=== PATIENT | male | born 1965 | race Caucasian/White ===

== ENCOUNTER → 2020-10-26 08:50 | Outpatient (BNVA) | payer BC, SELFPAY | PROVIDERS: PCP Internal Medicine; Visit Provider Urology ==

== ENCOUNTER → 2021-09-28 15:29 | Outpatient (BNVA) | payer BC, SELFPAY | PROVIDERS: PCP Internal Medicine; Visit Provider Urology ==

== ENCOUNTER → 2021-12-30 09:24 | Outpatient (BNVA) | payer BC, SELFPAY | PROVIDERS: PCP Internal Medicine; Visit Provider Urology | DX: Z13.89 Encounter for screening for other disorder (principal) ==

== ENCOUNTER → 2022-08-10 14:50 | Outpatient (BNVA) | payer BC, SELFPAY | PROVIDERS: PCP Internal Medicine; Visit Provider Urology | DX: Z13.89 Encounter for screening for other disorder (principal) ==

== ENCOUNTER → 2022-12-27 15:42 | Outpatient (BNVA) | payer BC, SELFPAY | PROVIDERS: PCP Internal Medicine; Visit Provider Urology ==

== ENCOUNTER 2023-05-14 08:01 | Day surgery (SDC) | payer BC, SELFPAY ==
[2023-05-10 07:43] VITALS: BMI 38.8
--- NOTE | 2023-05-11 11:48 | HO.ANESPROP2 ---
Documented by User: Kat Joyner NP 05/11/23 11:51 HPI - Anesthesia Eval Consult details Narrative: 57yo M for Targeted Prostate Needle Biopsy Cardiac cleared (s/p PR and CABG x 4 08/2022). Last office eval 09/2022 Routine PCP office visit 01/2023. No cardiac symptoms. PMFSH Active Problems Active Problems: All Active Problems (Updated 05/10/23 @ 07:43 by Mee Rios, RN) Bladder outlet obstruction (Acute) Elevated PSA (Acute) Past Medical History Medical History (Updated 05/10/23 @ 07:43 by Mee Rios RN) Hyperlipidemia Seasonal allergies Obesity Sleep apnea Myocardial infarction HTN (hypertension) Elevated PSA Family History Family History Father Bladder cancer Surgical History Surgical History (Updated 05/10/23 @ 07:48 by Mee Rios RN) Hx of coronary artery bypass graft History of mandibular surgery Social History Social History Patient Tobacco Use Status: Never used Tobacco Use of substances other than those prescribed or required for medical reasons: No Are you DNR?: No Advance Directives: No Advance Directives Information Provided: Yes Meds Allergies Allergy/AdvReac Type Severity Reaction Status Date / Time Dust mites Allergy Unknown Unknown Uncoded 08/10/22 14:51 Home Medications Medication Instructions Recorded Confirmed Last Taken Type aspirin 81 mg tablet,delayed 81 mg PO DAILY 05/10/23 05/10/23 05/06/23 History release atorvastatin 80 mg tablet 80 mg PO BEDTIME 05/10/23 05/10/23 Unknown History cholecalciferol (vitamin D3) 25 25 mcg PO BEDTIME 05/10/23 05/10/23 Unknown History mcg (1,000 unit) capsule (Vitamin D3) clopidogrel 75 mg tablet 75 mg PO DAILY 05/10/23 05/10/23 05/06/23 History finasteride 5 mg tablet 5 mg PO BEDTIME 05/10/23 05/10/23 Unknown History metoprolol tartrate 100 mg tablet 100 mg PO BID 05/10/23 05/10/23 Unknown History multivitamin 1 tab PO BEDTIME 05/10/23 05/10/23 Unknown History niacin 750 mg tablet,extended 1,500 mg PO BEDTIME 05/10/23 05/10/23 Unknown History release 24 hr omega 1-oag-lay-fish oil 1,000 mg 1 cap PO BEDTIME 05/10/23 05/10/23 05/13/23 History (120 mg-180 mg) capsule (Fish Oil) Exam Exam Date and Time: May 11, 2023 1148 Height,Weight and Vital Signs: Height 5 ft 7 in Weight 112.491 kg Assessment and Plan Assessment Anesthesia Assessment: Chart Reviewed Documented by User: Kesha Cervantes MD 05/14/23 10:15 PMFSH Past Medical History Medical History (Updated 05/10/23 @ 07:43 by Mee Rios RN) Hyperlipidemia Seasonal allergies Obesity Sleep apnea Myocardial infarction HTN (hypertension) Elevated PSA Family History Family History Father Bladder cancer Family history of problems with anesthesia: No Surgical History Surgical History (Updated 05/10/23 @ 07:48 by Mee Rios RN) Hx of coronary artery bypass graft History of mandibular surgery History of Problems with Anesthesia: No Social History Social History Patient Tobacco Use Status: Never used Tobacco Use of substances other than those prescribed or required for medical reasons: No Are you DNR?: No Advance Directives: No Advance Directives Information Provided: Yes Meds Allergies Allergy/AdvReac Type Severity Reaction Status Date / Time Dust mites Allergy Unknown Unknown Uncoded 08/10/22 14:51 Home Medications Medication Instructions Recorded Confirmed Last Taken Type aspirin 81 mg tablet,delayed 81 mg PO DAILY 05/10/23 05/10/23 05/06/23 History release atorvastatin 80 mg tablet 80 mg PO BEDTIME 05/10/23 05/10/23 Unknown History cholecalciferol (vitamin D3) 25 25 mcg PO BEDTIME 05/10/23 05/10/23 Unknown History mcg (1,000 unit) capsule (Vitamin D3) clopidogrel 75 mg tablet 75 mg PO DAILY 05/10/23 05/10/23 05/06/23 History finasteride 5 mg tablet 5 mg PO BEDTIME 05/10/23 05/10/23 Unknown History metoprolol tartrate 100 mg tablet 100 mg PO BID 05/10/23 05/10/23 Unknown History multivitamin 1 tab PO BEDTIME 05/10/23 05/10/23 Unknown History niacin 750 mg tablet,extended 1,500 mg PO BEDTIME 05/10/23 05/10/23 Unknown History release 24 hr omega 1-kay-rgs-fish oil 1,000 mg 1 cap PO BEDTIME 05/10/23 05/10/23 05/13/23 History (120 mg-180 mg) capsule (Fish Oil) Exam Airway Mallampati Class: II TM Dist: >3cm Neck ROM: Full Heart: rrr Lungs: cta Assessment and Plan Assessment Anesthesia Assessment: Anesthesia Plan Discussed Final Anesthetic Review Family History of Problems with Anesthesia: No History of Problems with Anesthesia: No NPO: Yes ASA Class: III Final Preanesthetic Review: No Changes in Pt Med Stat, Meds/Allgs Chart Reviewed, Consent Obtained/Reviewed and Anes Risks/Benef Reviewed Patient Risk: Intermediate Procedure Risk: Low Anesthetic Plan Anesthetic Plan: GA Disposition: Standard PACU
[2023-05-14 08:31] VITALS: BP 133/75; PULSE 64; RESP 16; TEMP 36.5; O2SAT 97
[2023-05-14] MEDS: levoFLOXacin 500 MG TABLET PO (08:38)
[2023-05-14] MEDS: Lactated Ringers 1,000 ML 100 ML IVCONT (08:39)
--- NOTE | 2023-05-14 10:12 | MHC.SHP ---
Pre-Procedural Eval Section A Date of Service: 05/14/23 The patient is an INPATIENT: No Changes since office visit: No Cold of Flu in the past 2 weeks, No New Medical Problems, No Changes in Medication and No Patient answered all questions The History & Physical has been completed within 30 days and I have reviewed it.: No Section B Chief Complaint: Elevated prostate specific antigen [PSA] Relevant Family History (Specify if Yes): No Relevant Social History: None Present Medications: see Short Stay Collaborative assessment Medical History: Significant History History of Previous Operations: No relevant previous surgery Allergies: Allergies Allergy/AdvReac Type Severity Reaction Status Date / Time Dust mites Allergy Unknown Unknown Uncoded 08/10/22 14:51 Review of Systems Sugical H&P ROS: Negative: Constitution, Cardiovascular, Respiratory, Neurological, Psychiatric, Hem-Onc, Allergic/Immunologic, Gastrointestinal, Genitourinary, Musculoskeletal, Integumentary, Endocrine and Eyes/Ears/Nose/Throat Exam Surgical H&P Exam: Normal: HEENT, Normal: Heart, Normal: Lungs, Normal: Extremities, Normal: Abdomen, Normal: Skin and Normal: Neurological Plan Diagnosis/Plan: Unchanged (Fusion biopsy prostate) I have reviewed the history and physical and performed a pertinent physical examination on my patient. No changes have occurred unless specified. Time Spent With Patient Time: Total time managing care of this patient today ____ minutes.
--- NOTE | 2023-05-14 11:07 | W.PM.OPN ---
Operative Note Operative Note Date of Service: 05/14/23 Narrative: Preoperative diagnosis: Elevated PSA Postoperative diagnosis: Elevated PSA Procedure: 2. transrectal ultrasound-guided pudendal nerve block 3. MRI-US fusion image registration performed 3. transperineal ultrasound-guided prostate biopsy 15 core including targets Surgeon: Dr. Philip Drake Anesthetic: Sedation plus local Indications for procedure: Elevated PSA - 8mm MRI anterior lateral right side lesion Procedure: After informed consent was verified, the patient was brought into the procedure area. Patient identity confirmed. Perioperative antibiotics confirmed. Safety pause time out performed. Anesthesia performed per protocol Ultrasound probe was placed per rectum Focalis software and hardware platform used An ultrasound-guided pudendal nerve block was performed using 10 cc of 1% lidocaine. 8 cc was placed at the base and 2 cc of the apex. Perineal injection of local. Ultrasound placement was made with grid calibration for height and prostate diameter in both the transverse and longitudinal planes. Once grid calibration was confirmed ultrasound acquisition was performed in the transverse fashion. Three dimensional ultrasound model was created. The planned needle targeting based on prior acquisition of MRI imaging was overlaid on the ultrasound images and targets confirmed through ultrasound review. Based on pre -planning evaluation 15 targets had been identified. These included 1 target of PiRADs 4 - right anterolateral mid identified lesion/s.. He tolerated the procedure well. Was transferred to stable condition in the PACU. Printed instructions regarding antibiotic use and common side effects such as low-grade temperature, potential infection and bleeding were given Pathology: 15 cores prostate biopsy CPT 64979 Modifier 22 for complexity of planning and procedure execution
[2023-05-14 11:08] VITALS: BP 154/93; PULSE 63; RESP 14; TEMP 36.1; O2SAT 96
[2023-05-14 11:13] VITALS: BP 128/81; PULSE 60; RESP 16; O2SAT 96
[2023-05-14 11:18] VITALS: BP 130/87; PULSE 56; RESP 16; O2SAT 94
[2023-05-14 11:23] VITALS: BP 134/85; PULSE 60; RESP 16; TEMP 36.1; O2SAT 96
[2023-05-14 11:44] VITALS: BP 131/81; PULSE 56; RESP 18; TEMP 35.9; O2SAT 95
== END 2023-05-14 12:30 | disposition home or self-care (01) ==
PROVIDERS: PCP Internal Medicine; Visit Provider Urology
PROC: (CPT 55700; principal; 2023-05-14 09:50)
DX: C61 Malignant neoplasm of prostate (principal); R97.20 Elevated prostate specific antigen [PSA]; N32.0 Bladder-neck obstruction; I25.2 Old myocardial infarction; Z95.1 Presence of aortocoronary bypass graft; I10 Essential (primary) hypertension; E78.5 Hyperlipidemia, unspecified; J30.2 Other seasonal allergic rhinitis; G47.33 Obstructive sleep apnea (adult) (pediatric); Z79.01 Long term (current) use of anticoagulants; Z79.82 Long term (current) use of aspirin; Z79.899 Other long term (current) drug therapy
CPT/HCPCS: 55706; 88305; 88344; J3010

== ENCOUNTER → 2023-05-14 08:01 | Outpatient (BNV) | payer BC, SELFPAY | PROVIDERS: PCP Internal Medicine; Visit Provider Urology | DX: R97.20 Elevated prostate specific antigen [PSA] (principal) | CPT/HCPCS: 55700; 76942 ==

== ENCOUNTER 2023-05-29 11:58 | Outpatient (AMB) | payer BC, SELFPAY ==
--- NOTE | 2023-05-29 12:00 | A.OFFVIS_ITS ---
Intake Intake Visit Reasons: Biopsy results Intake Note: Patient is Present for Telephone Follow Up Biopsy Urology Med:Finasteride, Antibiotic Allergy: None Blood Thinner: Plavix, Aspirin Allergies Dust mites Allergy (Unknown, Uncoded 08/10/22 14:51) Unknown Medication List - Last Reconciled 05/29/23 by Philip Drake MD aspirin 81 mg PO DAILY atorvastatin 80 mg PO BEDTIME cholecalciferol (vitamin D3) (Vitamin D3) 25 mcg PO BEDTIME clopidogrel 75 mg PO DAILY finasteride 5 mg PO BEDTIME metoprolol tartrate 100 mg PO BID multivitamin 1 tab PO BEDTIME niacin ER 1,500 mg PO BEDTIME omega 6-prx-esr-fish oil 1,000 mg (120 mg-180 mg) (Fish Oil) 1 cap PO BEDTIME HPI HPI Comments History of Present Illness Details Matt is a very pleasant male. He is a patient of Dr Navarrete. He is seen seen in the office today for the following urologic conditions. - Prostate Cancer Telemedicine Evaluation 15 min Consultation DoxBangee Ariella Video attempted Followup from targeted MRI-Ultrasound fusion biopsy Prostate Cancer - Multi core, Low Grade, Grade Group 1 (05/21) PSA at diagnosis - 4.5 on finasteride TRUS size 40gm Targeted Biopsy 15 cores Histologic grade: 3+3=6 (Grade group 1) Davenport score: 3+3=6 (Parts B - 5%, E- 10%, G- 10%, I- 10%, J - 30%, K - 25% and O - 5%) Number cores positive: 7 Total number of cores: 15 Periprostatic fat inv.: Not identified Seminal vesicle inv.: Not identified Perineural inv.: Not identified Imaging - 07/20 MRI - 07/20 PI-RADS for 8 mm rig ht anterior peripheral straddling the mid gland to the apex Elevated PSA/Abnormal CRISTI: He presents for further evaluation of elevated PSA. Current management is finasteride. Laboratory investigations include 12/16 , a total PSA evaluation 4.5 04/18 3.9 F 20%. 10/17 3.9, 09/20 6.2, 12/18 2.9, 06/20 4.5 PFSH Medical History Hyperlipidemia Seasonal allergies Obesity Sleep apnea Myocardial infarction HTN (hypertension) Elevated PSA Surgical History Hx of coronary artery bypass graft History of mandibular surgery Family History Father Bladder cancer Social History Patient Tobacco Use Status: Never used Tobacco Review of Systems Const All systems reviewed & are unremarkable except as noted in HPI and below Reports no additional complaints Resp Reports no additional complaints GI Reports no additional complaints Reports as per HPI Musc Reports no additional complaints Physical Exam Telemedicine evaluation Appropriate responses Regular breathing rate and rhythm HEENT Head: Yes normal to inspection Ears: hearing grossly normal bilaterally Eyes General: appearance normal, both eyes and all related structures Neck Neck: Yes normal visual inspection Chest Chest palpation & inspection: normal inspection of the chest Resp Effort & Inspection: normal respiratory effort and able to speak in complete sentences Assessment & Plan Assessment & Plan (1) Prostate cancer: Code(s): C61 - Malignant neoplasm of prostate Plan Prostate Cancer Therapy Discussion today focused on treatment options for prostate cancer. The patient has already reviewed educational materials that had been provided to him in printed form. The NCCN criteria for imaging, molecular testing and germ line testing were discussed. The discussion was then focused on therapeutic options which include 1) Deferred therapy/active surveillance. Recommended in the setting of low volume, very low risk and low risk disease. Criteria include 3 cores all less, same side, no core greater than 50% disease. Evaluation may be augmented with imaging such as pelvic MRI and genetic evaluation of biopsy material. Somatic tissue genetic testing such as Prolaris, which focuses on tumor-specific pathogenic variants that may identify an indication for further germline testing and can guide therapeutic decisions in the setting of low risk disease. - The patient is not a candidate for active surveillance. 2) Targeted Cryotherapy Ablation. The technique of cryotherapy was described. PSA free progression rates were discussed. Suitable candidates in general have low volume grade group 1 or grade group 2 disease. Typically pelvic MRI with targeted mapping biopsies are required for treatment planning. - The patient is not a candidate for image guided targeted cryotherapy ablation. 3) Robotic Prostatectomy. Salient features of the patient's PSA, Davenport score and disease stage were applied to the [facility] nomogram. Relevant rates of extracapsular extension, seminal vesicle involvement lani involvement with discussed. Pathologic up staging and down staging on final specimen was discussed. Salient features of the procedure, hospitalization and recovery were discussed. - The patient is a candidate for robotic prostatectomy.. 4) Radiation therapy was described. IMRT, hyperfractionated therapy, permanent seed implant with all without concomitant androgen deprivation therapy and rectal protection were discussed. There is a small separation regarding cancer control between radiation and prostatectomy at approximately 15 years. There is an evolving preference for hyper fractionated therapy. This gives the same radiation total dose in a reduced number of individual treatment sessions. This approach is associated with higher risks of rectal bleeding. To ameliorate these risks injection of a spacer gel posterior to the prostate has been advocated. This is only indicated in patients without evidence of extracapsular extension posteriorly, and should be considered with caution where disease is primary grade 4. Brachytherapy was described in detail. Typically this is a same day procedure. Therapy is typically well tolerated and gives good control for low-risk prostate cancer and cancer that does not involve neurovascular invasion. Different risks were described for each therapeutic option. Ranges from the published literature were discussed. Consequent morbidity and treatment to address complications were discussed. These include - robotic prostatectomy - Typically patients are in hospital for one day and miss 4 weeks of work. The importance of preoperative walking and Kegel exercises was stressed. Complications, including but not limited to; acute complications regarding blood loss, transfusion, DVT, ileus, wound infection and potential mortality. Long-term complications such as impotence, UTI, urethral stricture, bladder neck contracture, incontinence. Penile shrinkage and chronic pain were discussed and reviewed. - radiation - IMRT typically this takes 25-40 daily treatments administered on a Sunday through Sunday sequence. Treatment is normally well tolerated. associated side effects include urge, frequency, dysuria, hematuria, loose bowels and fatigue, particularly toward the end of therapy. These can be ameliorated to some degree with medication. Long-term risks regarding impotence and a small risk of chronic urinary urge and incontinence were discussed - brachytherapy General anesthesia is used. Radioactive seeds are placed. There may be a required planning visit. Risks regarding anesthesia with DVT, PE, infection, urinary retention, urgency, and frequency were discussed. Long-term risks include bladder neck contraction, impotence, urge, potential for secondary cancer of the bladder base The patient has Grade Group 1, pT 1 C prostate cancer disease Based on the patient's age, comorbidities and personal preferences reasonable treatment options include robotic surgery versus brachytherapy - referral made to Dr. Llamas [facility] for robotic surgery assessment, Dr. Chambers - [facility] brachytherapy assessment The patient is not a candidate for germline testing in accordance with the NCCN guideline Orders: Referrals Radiation Oncology Referral C61 - Malignant neoplasm of prostate Urology Referral C61 - Malignant neoplasm of prostate Patient Instructions: Imaging studies, laboratory and physical exam results were discussed and reviewed in detail. No major barriers to patient understanding were identified. An opportunity to ask questions regarding the treatment plan was provided. All questions were answered. The patient expressed understanding and agreement with the above treatment plan. The patient is aware they should contact our office by phone for worsening of their current condition or the appearance of new urologic symptoms. Compliance is encouraged with any medications and followup testing that is ordered. It is a privilege to participate in the urologic care of your patient. If you have any questions or concerns regarding treatment for the above conditions, or other urologic issues, please do not hesitate to contact me. The office telephone contact is [phone]. This note is constructed using voice recognition software. While every effort has been made to ensure accuracy mirror installer errors may have been included. Yours sincerely, Dr Philip Drake MD, [facility] - Urology Providers of Expert, Compassionate Care for the Genitourinary System Telehealth Telehealth Location of provider rendering services: practice address Location of patient: address on file Patient Identification confirmed using: Name, : Yes Telehealth method: video Patient verbally consented to treatment: Yes Patient verbally consented to billing insurance company: Yes Patient informed of any privacy concerns related to visit: Yes Coding Level of Care Code Tele Est Pt Level 4 (48953) Diagnoses Prostate cancer C61
== END 2023-05-29 12:37 | disposition home or self-care (01) ==
LOC: HO.HUSH 11:58
PROVIDERS: PCP Internal Medicine; Visit Provider Urology
DX: C61 Malignant neoplasm of prostate (principal)
CPT/HCPCS: 99214

== ENCOUNTER → 2023-05-29 11:58 | Outpatient (BNVA) | payer BC, SELFPAY | PROVIDERS: PCP Internal Medicine; Visit Provider Urology ==

== ENCOUNTER 2023-08-24 15:39 | Outpatient (AMB) | payer BC, SELFPAY ==
--- NOTE | 2023-08-24 15:57 | MHC.OFFVIS ---
Intake Intake Visit Reasons: 6w follow up Intake Note: Patient is Present for Follow Up Urology medication: finasteride, Antibiotic Allergies:None Blood Thinners: Plavix, Aspirin Allergies Dust mites Allergy (Unknown, Uncoded 08/10/22 14:51) Unknown HPI HPI Comments History of Present Illness Details Matt is a very pleasant male. He is a patient of Dr Navarrete. He is seen seen in the office today for the following urologic conditions. - Prostate Cancer Had meeting with Dr. Chambers regarding seeds, Dr. Llamas regarding prostatectomy At this stage with willing to keep pursuing active surveillance Three-month follow-up PSA was start finasteride Will get genetic test performed at [facility] Prostate Cancer - Multi core, Low Grade, Grade Group 1 (05/21) PSA at diagnosis - 4.5 on finasteride TRUS size 40gm Targeted Biopsy 15 cores Histologic grade: 3+3=6 (Grade group 1) [place] score: 3+3=6 (Parts B - 5%, E- 10%, G- 10%, I- 10%, J - 30%, K - 25% and O - 5%) Number cores positive: 7 Total number of cores: 15 Periprostatic fat inv: Not identified Seminal vesicle inv.: Not identified Perineural inv.: Not identified Imaging - 07/20 MRI - 07/20 PI-RADS for 8 mm right anterior peripheral straddling the mid gland to the apex - 06/21 MRI PI-RADS 4 10 mm right anterior Elevated PSA/Abnormal CRISTI: He presents for further evaluation of elevated PSA. Current management is finasteride. Laboratory investigations include 12/16 , a total PSA evaluation 4.5 04/18 3.9 F 20%. 10/17 3.9, 09/20 6.2, 12/18 2.9, 06/20 4.5 PFSH Medical History Hyperlipidemia Seasonal allergies Obesity Sleep apnea Myocardial infarction HTN (hypertension) Elevated PSA Surgical History Hx of coronary artery bypass graft History of mandibular surgery Family History Father Bladder cancer Social History Patient Tobacco Use Status: Never used Tobacco Review of Systems Const Denies chills and Denies fever(s) Card Reports no additional complaints and Denies syncope Resp Denies cough GI Denies abdominal pain and Denies heartburn Reports as per HPI and Denies change in libido Neuro Denies syncope Psych Denies change in libido Endo Denies change in libido Physical Exam Const General: cooperative, healthy appearing, comfortable and no acute distress Orientation/consciousness: patient oriented x3 HEENT Face and sinus: Yes normal facial exam Mouth: moist mucous membranes Neck Neck: Yes normal visual inspection, Yes full ROM and Yes trachea midline Chest Chest palpation & inspection: normal inspection of the chest Resp Effort & Inspection: normal respiratory effort, able to speak in complete sentences and no respiratory distress GI Inspection: Yes normal to inspection Back/Spine/Pelvis Cervical Spine: normal cervical lordosis Thoracic/Lumbar Spine: thoracic and lumbar spine normal to inspection Skin General skin exam: no rashes or lesions noted Neuro General: patient oriented x3, gait normal, tone normal and moves all extremities Extrem General: Yes normal to inspection and Yes capillary refill normal Assessment & Plan Assessment & Plan (1) Prostate cancer: Code(s): C61 - Malignant neoplasm of prostate (2) Bladder outlet obstruction: Code(s): N32.0 - Bladder-neck obstruction Plan Continue finasteride Three-month follow-up PSA Check with [facility] regarding decipher genetic test Orders: Orders Prostate Specific Antigen 3 Months C61 - Malignant neoplasm of prostate Patient Instructions: Imaging studies, laboratory and physical exam results were discussed and reviewed in detail. No major barriers to patient understanding were identified. An opportunity to ask questions regarding the treatment plan was provided. All questions were answered. The patient expressed understanding and agreement with the above treatment plan. The patient is aware they should contact our office by phone for worsening of their current condition or the appearance of new urologic symptoms. Compliance is encouraged with any medications and followup testing that is ordered. It is a privilege to participate in the urologic care of your patient. If you have any questions or concerns regarding treatment for the above conditions, or other urologic issues, please do not hesitate to contact me. The office telephone contact is [phone]. This note is constructed using voice recognition software. While every effort has been made to ensure accuracy wireline field operator errors may have been included. Yours sincerely, Dr Philip Drake MD, [facility] - Urology Providers of Expert, Compassionate Care for the Genitourinary System Coding Level of Care Code Est Pt Level 3 (38111) Diagnoses Prostate cancer C61 Bladder outlet obstruction N32.0
== END 2023-08-24 16:15 | disposition home or self-care (01) ==
PROVIDERS: PCP Internal Medicine; Visit Provider Urology
DX: C61 Malignant neoplasm of prostate (principal); N32.0 Bladder-neck obstruction
CPT/HCPCS: 99213

== ENCOUNTER → 2023-08-24 15:39 | Outpatient (BNVA) | payer BC, SELFPAY | PROVIDERS: PCP Internal Medicine; Visit Provider Urology ==

== ENCOUNTER 2023-11-20 15:28 | Outpatient (AMB) | payer BC, SELFPAY ==
--- NOTE | 2023-11-20 15:29 | MHC.OFFVIS ---
Intake Visit Reasons: 3M PSA(set)Confirmed Intake Note: Patient is Present for Telephone Follow Up Urology Med: Finasteride Antibiotic Allergy: None Blood Thinner:Aspirin, Clopidrogel Allergies Dust mites Allergy (Unknown, Uncoded 11/20/23 15:32) Unknown HPI Comments Details: Matt is a very pleasant male. He is a patient of Dr Navarrete. He is seen seen in the office today for the following urologic conditions. - Prostate Cancer Grade Group 1 Telemedicine Evaluation 15 min Consultation Doximity Ariella Video PSA rising despite finasteride Recommend prostate treatment Previously Had meeting with Dr. Chambers regarding seeds, Dr. Llamas regarding prostatectomy Unable to get genetic testing which was performed at [facility] PSA 11/20 6.2 He is leaning towards brachytherapy. He will call Dr. Chambers office in order to schedule. Prostate Cancer - Multi core, Low Grade, Grade Group 1 (05/21) PSA at diagnosis - 4.5 on finasteride TRUS size 40gm Targeted Biopsy 15 cores Histologic grade: 3+3=6 (Grade group 1) Kylie score: 3+3=6 (Parts B - 5%, E- 10%, G- 10%, I- 10%, J - 30%, K - 25% and O - 5%) Number cores positive: 7 Total number of cores: 15 Periprostatic fat inv: Not identified Seminal vesicle inv.: Not identified Perineural inv.: Not identified Imaging - 07/20 MRI - 07/20 PI-RADS for 8 mm right anterior peripheral straddling the mid gland to the apex - 06/21 MRI PI-RADS 4 - 10 mm right anterior Elevated PSA/Abnormal CRISTI: He presents for further evaluation of elevated PSA. Current management is finasteride. Laboratory investigations include 12/16 , a total PSA evaluation 4.5 04/18 3.9 F 20%. 10/17 3.9, 09/20 6.2, 12/18 2.9, 06/20 4.5 PFSH Medical History Hyperlipidemia Seasonal allergies Obesity Sleep apnea Myocardial infarction HTN (hypertension) Elevated PSA Surgical History Hx of coronary artery bypass graft History of mandibular surgery Family History Father Bladder cancer Social History Patient Tobacco Use Status: Never used Tobacco Review of Systems Const All systems reviewed & are unremarkable except as noted in HPI and below Reports no additional complaints Resp Reports no additional complaints GI Reports no additional complaints Reports as per HPI Musc Reports no additional complaints Physical Exam Telemedicine evaluation Appropriate responses Regular breathing rate and rhythm HEENT Head: Yes normal to inspection Ears: hearing grossly normal bilaterally Eyes General: appearance normal, both eyes and all related structures Neck Neck: Yes normal visual inspection Chest Chest palpation & inspection: normal inspection of the chest Resp Effort & Inspection: normal respiratory effort and able to speak in complete sentences Telehealth Telehealth Location of provider rendering services: practice address Location of patient: address on file Patient Identification confirmed using: Name, : Yes Telehealth method: video Patient verbally consented to treatment: Yes Patient verbally consented to billing insurance company: Yes Patient informed of any privacy concerns related to visit: Yes Assessment & Plan Assessment & Plan (1) Prostate cancer: Code(s): C61 - Malignant neoplasm of prostate Category: Medical Plan Planning on prostate brachytherapy Patient Instructions: Imaging studies, laboratory and physical exam results were discussed and reviewed in detail. No major barriers to patient understanding were identified. An opportunity to ask questions regarding the treatment plan was provided. All questions were answered. The patient expressed understanding and agreement with the above treatment plan. The patient is aware they should contact our office by phone for worsening of their current condition or the appearance of new urologic symptoms. Compliance is encouraged with any medications and followup testing that is ordered. It is a privilege to participate in the urologic care of your patient. If you have any questions or concerns regarding treatment for the above conditions, or other urologic issues, please do not hesitate to contact me. The office telephone contact is [phone]. This note is constructed using voice recognition software. While every effort has been made to ensure accuracy still tender errors may have been included. Yours sincerely, Dr Philip Drake MD, [facility] - Urology Providers of Expert, Compassionate Care for the Genitourinary System Coding Level of Care Code Tele Est Pt Level 4 (54123) Diagnoses Prostate cancer C61
== END 2023-11-20 16:40 | disposition home or self-care (01) ==
LOC: HO.HUSH 15:28
PROVIDERS: PCP Internal Medicine; Visit Provider Urology
DX: C61 Malignant neoplasm of prostate (principal)
CPT/HCPCS: 99214

== ENCOUNTER → 2023-11-20 15:28 | Outpatient (BNVA) | payer BC, SELFPAY | PROVIDERS: PCP Internal Medicine; Visit Provider Urology ==

== ENCOUNTER 2023-11-22 15:43 | Outpatient (AMB) | payer BC, SELFPAY ==
--- NOTE | 2023-11-22 15:43 | A.OFFVIS_ITS ---
Intake Visit Reasons: Prolaris/PSA Intake Note: Patient is present for Prolaris and psa results Locomotive Observer: Locomotive Observer Present (Kirsten ) Accompanied by: Spouse Allergies Dust mites Allergy (Unknown, Uncoded 11/20/23 15:32) Unknown HPI Comments Details: Matt is a very pleasant male. He is a patient of Dr Navarrete. He is seen seen in the office today for the following urologic conditions. - Prostate Cancer Grade Group 1 Telemedicine Evaluation 15 min Consultation Doximity Ariella Video PSA rising despite finasteride Recommend prostate treatment Previously had meeting with Dr. Chambers regarding seeds, Dr. Llamas regarding prostatectomy Unable to get genetic testing which was performed at [facility] PSA 11/20 6.2 He is leaning towards brachytherapy. Dr. Cobian is now the physician at [facility] performing these procedures. At this time he would like to wait 4 months with repeat PSA Prostate Cancer - Multi core, Low Grade, Grade Group 1 (05/21) PSA at diagnosis - 4.5 on finasteride TRUS size 40gm Targeted Biopsy 15 cores Histologic grade: 3+3=6 (Grade group 1) Kylie score: 3+3=6 (Parts B - 5%, E- 10%, G- 10%, I- 10%, J - 30%, K - 25% and O - 5%) Number cores positive: 7 Total number of cores: 15 Periprostatic fat inv: Not identified Seminal vesicle inv.: Not identified Perineural inv.: Not identified Imaging - 07/20 MRI - 07/20 PI-RADS for 8 mm right anterior peripheral straddling the mid gland to the apex - 06/21 MRI PI-RADS 4 - 10 mm right anterior Elevated PSA/Abnormal CRISTI: He presents for further evaluation of elevated PSA. Current management is finasteride. Laboratory investigations include 12/16 , a total PSA evaluation 4.5 04/18 3.9 F 20%. 10/17 3.9, 09/20 6.2, 12/18 2.9, 06/20 4.5 PFSH Medical History Hyperlipidemia Seasonal allergies Obesity Sleep apnea Myocardial infarction HTN (hypertension) Elevated PSA Surgical History Hx of coronary artery bypass graft History of mandibular surgery Family History Father Bladder cancer Social History Patient Tobacco Use Status: Never used Tobacco Review of Systems Const All systems reviewed & are unremarkable except as noted in HPI and below Reports no additional complaints Resp Reports no additional complaints GI Reports no additional complaints Reports as per HPI Musc Reports no additional complaints Physical Exam Telemedicine evaluation Appropriate responses Regular breathing rate and rhythm HEENT Head: Yes normal to inspection Ears: hearing grossly normal bilaterally Eyes General: appearance normal, both eyes and all related structures Neck Neck: Yes normal visual inspection Chest Chest palpation & inspection: normal inspection of the chest Resp Effort & Inspection: normal respiratory effort and able to speak in complete [facility] Telehealth Location of provider rendering services: practice address Location of patient: address on file Patient Identification confirmed using: Name, : Yes Telehealth method: video Patient verbally consented to treatment: Yes Patient verbally consented to billing insurance company: Yes Patient informed of any privacy concerns related to visit: Yes Assessment & Plan Assessment & Plan (1) Prostate cancer: Code(s): C61 - Malignant neoplasm of prostate Category: Medical (2) Bladder outlet obstruction: Code(s): N32.0 - Bladder-neck obstruction Category: Medical Plan Four month follow-up PSA Orders: Orders PSA,Total (Free>4and<10) 4 Months C61 - Malignant neoplasm of prostate Patient Instructions: Imaging studies, laboratory and physical exam results were discussed and reviewed in detail. No major barriers to patient understanding were identified. An opportunity to ask questions regarding the treatment plan was provided. All questions were answered. The patient expressed understanding and agreement with the above treatment plan. The patient is aware they should contact our office by phone for worsening of their current condition or the appearance of new urologic symptoms. Compliance is encouraged with any medications and followup testing that is ordered. It is a privilege to participate in the urologic care of your patient. If you have any questions or concerns regarding treatment for the above conditions, or other urologic issues, please do not hesitate to contact me. The office telephone contact is [phone]. This note is constructed using voice recognition software. While every effort has been made to ensure accuracy assistant production editor errors may have been included. Yours sincerely, Dr Philip Drake MD, [facility] - Urology Providers of Expert, Compassionate Care for the Genitourinary System Coding Level of Care Code Tele Est Pt Level 3 (60000) Diagnoses Prostate cancer C61 Bladder outlet obstruction N32.0
== END 2023-11-22 16:56 | disposition home or self-care (01) ==
LOC: HO.HUSH 15:43
PROVIDERS: PCP Internal Medicine; Visit Provider Urology
DX: C61 Malignant neoplasm of prostate (principal); N32.0 Bladder-neck obstruction
CPT/HCPCS: 99213

== ENCOUNTER → 2023-11-22 15:43 | Outpatient (BNVA) | payer BC, SELFPAY | PROVIDERS: PCP Internal Medicine; Visit Provider Urology ==

== ENCOUNTER 2024-02-19 15:35 | Outpatient (AMB) | payer BC, SELFPAY ==
--- NOTE | 2024-02-19 15:41 | A.OFFVIS_ITS ---
Intake Visit Reasons: 4M PSA(psa?) Intake Note: Patient is present for follow up Policy Analyst Required: No Allergies Dust mites Allergy (Unknown, Uncoded 11/20/23 15:32) Unknown HPI Comments Details: Matt is a very pleasant male. He is a patient of Dr Navarrete. He is seen seen in the office today for the following urologic conditions. - Prostate Cancer Grade Group 1 PSA not done at recent lab work Order placed Discussed with patient and partner options Based on MRI would be candidate for targeted cryotherapy Repeat PSA today and 4 months. He will call 2 days after PSA test to review results. Previously had meeting with Dr. Chambers regarding seeds, Dr. Llamas regarding prostatectomy Polaris result retained from [facility] shows active surveillance [facility] PSA 11/20 6.2 He is leaning towards brachytherapy. Dr. Cobian is now the physician at [facility] performing these procedures. At this time he would like to wait 4 months with repeat PSA Prostate Cancer - Multi core, Low Grade, Grade Group 1 (05/21) PSA at diagnosis - 4.5 on finasteride TRUS size 40gm Targeted Biopsy 15 cores Histologic grade: 3+3=6 (Grade group 1) Kylie score: 3+3=6 (Parts B - 5%, E- 10%, G- 10%, I- 10%, J - 30%, K - 25% and O - 5%) Number cores positive: 7 Total number of cores: 15 Periprostatic fat inv: Not identified Seminal vesicle inv.: Not identified Perineural inv.: Not identified Imaging - 07/20 MRI - 07/20 PI-RADS for 8 mm right anterior peripheral straddling the mid gland to the apex - 06/21 MRI PI-RADS 4 - 10 mm right anterior localized Elevated PSA/Abnormal CRISTI: He presents for further evaluation of elevated PSA. Current management is finasteride. Laboratory investigations include 12/16 , a total PSA evaluation 4.5 04/18 3.9 F 20%. 10/17 3.9, 09/20 6.2, 12/18 2.9, 06[facility] Medical History Hyperlipidemia Seasonal allergies Obesity Sleep apnea Myocardial infarction HTN (hypertension) Elevated PSA Surgical History Hx of coronary artery bypass graft History of mandibular surgery Family History Father Bladder cancer Social History Patient Tobacco Use Status: Never used Tobacco Review of Systems Const Denies chills and Denies fever(s) Card Reports no additional complaints and Denies syncope Resp Denies cough GI Denies abdominal pain and Denies heartburn Reports as per HPI and Denies change in libido Neuro Denies syncope Psych Denies change in libido Endo Denies change in libido Physical Exam Const General: cooperative, healthy appearing, comfortable and no acute distress Orientation/consciousness: patient oriented x3 HEENT Face and sinus: Yes normal facial exam Mouth: moist mucous membranes Neck Neck: Yes normal visual inspection, Yes full ROM and Yes trachea midline Chest Chest palpation & inspection: normal inspection of the chest Resp Effort & Inspection: normal respiratory effort, able to speak in complete sentences and no respiratory distress GI Inspection: Yes normal to inspection Back/Spine/Pelvis Cervical Spine: normal cervical lordosis Thoracic/Lumbar Spine: thoracic and lumbar spine normal to inspection Skin General skin exam: no rashes or lesions noted Neuro General: patient oriented x3, gait normal, tone normal and moves all extremities Extrem General: Yes normal to inspection and Yes capillary refill normal Telehealth Telehealth Location of provider rendering services: practice address Location of patient: address on file Patient Identification confirmed using: Name, : Yes Telehealth method: voice only Patient verbally consented to treatment: Yes Patient verbally consented to billing insurance company: Yes Patient informed of any privacy concerns related to visit: Yes Assessment & Plan Assessment & Plan (1) Prostate cancer: Code(s): C61 - Malignant neoplasm of prostate Category: Medical Plan Four month follow-up Orders: Orders Prostate Specific Antigen 4 Months C61 - Malignant neoplasm of prostate Prostate Specific Antigen 02/19/24 C61 - Malignant neoplasm of prostate Patient Instructions: Imaging studies, laboratory and physical exam results were discussed and reviewed in detail. No major barriers to patient understanding were identified. An opportunity to ask questions regarding the treatment plan was provided. All questions were answered. The patient expressed understanding and agreement with the above treatment plan. The patient is aware they should contact our office by phone for worsening of their current condition or the appearance of new urologic symptoms. Compliance is encouraged with any medications and followup testing that is ordered. It is a privilege to participate in the urologic care of your patient. If you have any questions or concerns regarding treatment for the above conditions, or other urologic issues, please do not hesitate to contact me. The office telephone contact is [phone]. This note is constructed using voice recognition software. While every effort has been made to ensure accuracy or assistant errors may have been included. Yours sincerely, Dr Philip Drake MD, [facility] - Urology Providers of Expert, Compassionate Care for the Genitourinary System Coding Level of Care Code Est Pt Level 3 (62815) Diagnoses Prostate cancer C61
== END 2024-02-19 16:58 | disposition home or self-care (01) ==
PROVIDERS: PCP Internal Medicine; Visit Provider Urology
DX: C61 Malignant neoplasm of prostate (principal)
CPT/HCPCS: 99213

== ENCOUNTER → 2024-02-19 15:35 | Outpatient (BNVA) | payer BC, SELFPAY | PROVIDERS: PCP Internal Medicine; Visit Provider Urology ==

== ENCOUNTER 2024-03-26 15:27 | Outpatient (AMB) | payer BC, SELFPAY ==
--- NOTE | 2024-03-26 15:28 | A.OFFVIS_ITS ---
Intake Visit Reasons: follow up/PSA Intake Note: Patient is Present for Telephone Follow Up Urology Med: Finasteride, Antibiotic Allergy: None Blood Thinner: Aspirin Javascript Web Developer Required: No Allergies Dust mites Allergy (Unknown, Uncoded 03/26/24 15:30) Unknown Medication List - Last Reconciled 03/26/24 by Philip Drake MD aspirin 81 mg PO DAILY atorvastatin 80 mg PO BEDTIME cholecalciferol (vitamin D3) (Vitamin D3) 25 mcg PO BEDTIME clopidogrel 75 mg PO DAILY finasteride 5 mg PO BEDTIME 90 days metoprolol tartrate 100 mg PO BID multivitamin 1 tab PO BEDTIME niacin ER 1,500 mg PO BEDTIME omega 2-slt-zds-fish oil 1,000 mg (120 mg-180 mg) (Fish Oil) 1 cap PO BEDTIME HPI Comments Details: Matt is a very pleasant male. He is a patient of Dr Navarrete. He is seen seen in the office today for the following urologic conditions. - Prostate Cancer Grade Group 1 Telemedicine Evaluation 15 min Consultation SeeToo Ariella Video Discussed current PSA Would continue with follow-up given genetic and imaging findings 4 month follow-up PSA Previously had meeting with Dr. Chambers regarding seeds, Dr. Llamas regarding prostatectomy Polaris result retained from [facility] shows active surveillance category PSA 11/20 6.2. 02/19 6.8 He is leaning towards brachytherapy. Dr. Cobian is now the physician at [facility] performing these procedures. At this time he would like to wait 4 months with repeat PSA Prostate Cancer - Multi core, Low Grade, Grade Group 1 (05/21) PSA at diagnosis - 4.5 on finasteride TRUS size 40gm Targeted Biopsy 15 cores Histologic grade: 3+3=6 (Grade group 1) Kylie score: 3+3=6 (Parts B - 5%, E- 10%, G- 10%, I- 10%, J - 30%, K - 25% and O - 5%) Number cores positive: 7 Total number of cores: 15 Periprostatic fat inv: Not identified Seminal vesicle inv.: Not identified Perineural inv.: Not identified Imaging - 07/20 MRI - 07/20 PI-RADS for 8 mm right anterior peripheral straddling the mid gland to the apex - 06/21 MRI PI-RADS 4 - 10 mm right anterior localized Polaris 12/23 - ultra low risk group, 1.4% 10 year progression risks, active surveillance category Elevated PSA/Abnormal CRISTI: He presents for further evaluation of elevated PSA. Current management is finasteride. Laboratory investigations include 12/16 , a total PSA evaluation 4.5 04/18 3.9 F 20%. 10/17 3.9, 09/20 6.2, 12/18 2.9, 06/20 4.5 PFSH Medical History Hyperlipidemia Seasonal allergies Obesity Sleep apnea Myocardial infarction HTN (hypertension) Elevated PSA Surgical History Hx of coronary artery bypass graft History of mandibular surgery Family History Father Bladder cancer Social History Patient Tobacco Use Status: Never used Tobacco Review of Systems Const All systems reviewed & are unremarkable except as noted in HPI and below Reports no additional complaints Resp Reports no additional complaints GI Reports no additional complaints Reports as per HPI Musc Reports no additional complaints Physical Exam Telemedicine evaluation Appropriate responses Regular breathing rate and rhythm HEENT Head: Yes normal to inspection Ears: hearing grossly normal bilaterally Eyes General: appearance normal, both eyes and all related structures Neck Neck: Yes normal visual inspection Chest Chest palpation & inspection: normal inspection of the chest Resp Effort & Inspection: normal respiratory effort and able to speak in complete sentences Telehealth Telehealth Telehealth Platform: [facility] Location of provider rendering services: practice address Location of patient: address on file Patient Identification confirmed using: Name, : Yes Telehealth method: video Patient verbally consented to treatment: Yes Patient verbally consented to billing insurance company: Yes Patient informed of any privacy concerns related to visit: Yes Minutes spent on Phone/Video with Pt.: 15 Assessment & Plan Assessment & Plan (1) Prostate cancer: Code(s): C61 - Malignant neoplasm of prostate Category: Medical Plan Four month follow-up PSA Patient Instructions: Imaging studies, laboratory and physical exam results were discussed and reviewed in detail. No major barriers to patient understanding were identified. An opportunity to ask questions regarding the treatment plan was provided. All questions were answered. The patient expressed understanding and agreement with the above treatment plan. The patient is aware they should contact our office by phone for worsening of their current condition or the appearance of new urologic symptoms. Compliance is encouraged with any medications and followup testing that is ordered. It is a privilege to participate in the urologic care of your patient. If you have any questions or concerns regarding treatment for the above conditions, or other urologic issues, please do not hesitate to contact me. The office telephone contact is [phone]. This note is constructed using voice recognition software. While every effort has been made to ensure accuracy surgical training specialist errors may have been included. Yours sincerely, Dr Philip Drake MD, [facility] - Urology Providers of Expert, Compassionate Care for the Genitourinary System Coding Level of Care Code Tele Est Pt Level 3 (53662) Diagnoses Prostate cancer C61
== END 2024-03-26 16:52 | disposition home or self-care (01) ==
LOC: HO.HUSH 15:27
PROVIDERS: PCP Internal Medicine; Visit Provider Urology
DX: C61 Malignant neoplasm of prostate (principal)
CPT/HCPCS: 99213

== ENCOUNTER → 2024-03-26 15:27 | Outpatient (BNVA) | payer BC, SELFPAY | PROVIDERS: PCP Internal Medicine; Visit Provider Urology ==

== ENCOUNTER 2024-08-29 15:05 | Outpatient (AMB) | payer BC, SELFPAY ==
--- OUTSIDE RECORDS SUMMARY | 2024-08-29 15:08 | XMS_ITS | Referral Summary ---
Author Organization [facility] Address [address] [place] [address] Care Team Providers Care Auto Clocks Repairer Name Role Phone Jules Navarrete Primary Care Provider [phone] Allergies No known active allergies Medications [id number] -fish oil-D3 350 mg- 1,000 unit capsule Take 1,000 mg by mouth. 09/03/2022 Active metoprolol tartrate (LOPRESSOR) 100 mg tablet SMARTSI Tablet(s) By Mouth Twice Daily Active finasteride (PROSCAR) 5 mg tablet Take 5 mg by mouth. 09/03/2022 Active niacin (NIASPAN) 750 mg CR tablet SMARTSI Tablet(s) By Mouth Every Night 05/25/2023 Active fenofibrate (LOFIBRA) tablet 160 mg SMARTSI Tablet(s) By Mouth Daily Active clopidogreL (PLAVIX) 75 mg tablet SMARTSI Tablet(s) By Mouth Daily Active cholecalciferol (VITAMIN D3) 1,000 unit tablet Take 25 mcg by mouth. 09/03/2022 Active aspirin 81 mg EC tablet SMARTSI Tablet(s) By Mouth Daily Active Active Problems Problem Noted Date Diagnosed Date Coronary artery disease 06/13/2023 Hypercholesterolemia 06/13/2023 Social History Tobacco Use Types Packs/Day Years Used Date Smoking Tobacco: Never Smokeless Tobacco: Never Tobacco Cessation:Counseling Given: Not Answered Alcohol Use Standard Drinks/Week Comments Yes 0 (1 standard drink = 0.6 oz pur e alcohol) Rarely uses Sex and Gender Information Value Date Recorded Sex Assigned at Male 05/31/2023 3:14 PM EDT Legal Sex Male 3:01 PM EDT Gender Identity Male 06/12/2023 10:33 PM EST Sexual Orientation Straight 06/12/2023 10 :33 PM EST Last Filed Vital Signs Vital Sign Reading Time Taken Comments Blood Pressure 99/64 06/13/2023 11:21 AM EST Pulse 65 06/13/2023 11:21 AM EST Temperature 36.9 ??C (98.4 ??F) 06/13/2023 1 1:21 AM EST Respiratory Rate 16 06/13/2023 11:2 1 AM EST Oxygen Saturation 98% 06/13/2023 11: 21 AM EST Inhaled Oxygen Concentration - - Weight 106.8 kg (235 lb 6.4 oz) 023 11:21 AM EST Height - - Body Mass Index - - Plan of Treatment Not on file Insurance BCBS OUT OF STATE PPO Care Teams Auto Clocks Repairer Relationship Specialty Start Date [place] [address] PCP - General Internal Medicine 06/13/23
--- OUTSIDE RECORDS SUMMARY | 2024-08-29 15:08 | XMS_ITS | Clinical Summary ---
Author Organization [facility] Address [address] [place] [address] Care Team Providers Care Elastic Assembler Name Role Phone Jules Navarrete Primary Care Provider [phone] Allergies No known active allergies Medications [id number] -fish oil-D3 350 mg- 1,000 unit capsule [...] Date Coronary artery disease 06/13/2023 Hypercholesterolemia 06/13/2023 Family History Medical History Relation Name Comments Prostate cancer Brother Bladder Cancer Father Relation Name Status Comments Brother Father Social History Tobacco Use Types Packs/Day Years [...] Mass Index - - Plan of Treatment Health Maintenance Due Date Last Done Comments Cologuard 1963 Colon Cancer Screening 1963 Colonoscopy 1963 FOBT / Fit Test 1963 HIV Screening 1963 Hepatitis C Screening 1965 Sigmoidoscopy 1963 DTaP,Tdap,and Td Vaccines (1 - Tdap) 10/29/1985 COVID-19 Vaccine ( season) 2024 05/05/2022, 06/09/2021, 11/06/2020, Additional history exists Influenza Vaccine (#1) 2024 Alcohol/Substance Use Screening 07/30/2024 Depression Screening and Follow-Up 07/30/2024 Social Drivers of Health Annual Screening 07/30/2024 RSV Vaccine (60+ years old and patients) (1 - 1-dose 75+ series) 10/29/2038 Zoster Vaccines Completed 07/29/2022, 07/01, 04/04/2022 Hepatitis B Vaccines Aged Out No long er eligible based on patient's age to complete this topic Pneumococcal Vaccine: Pediatric (0-5 Years) and At-Risk Patients (6-64 Years) Aged Out No longer eligible based on patient's age to complete this topic Insurance BCBS OUT OF STATE PPO Care Teams Elastic Assembler Relationship Specialty Start [place] [address] PCP - General Internal Medicine 06/13/23
--- OUTSIDE RECORDS SUMMARY | 2024-08-29 15:08 | XMS_ITS | Clinical Summary ---
Author Organization [facility] Address [address] [place] [address] Care Team Providers Care Lead Front Desk Agent Name Role Phone Jules Navarrete MD Primary Care Provider [phone] Allergies Active Allergy Reactions Criticality Noted Date Comments Cat Dander Other (See Comments) 07/04/2023 Dust Mite Extract Other (See Comments) 07/04/20 23 Medications Medication Sig Dispensed Refills Start Date End Date Status aspirin enteric coated (ECOTRIN LOW STRENGTH) 81 MG EC tablet SMARTSI Tablet(s) By Mouth Daily 10/02/2022 Active atorvastatin (LIPITOR) 80 MG tablet 07/01/2023 Active cholecalciferol (Vitamin D-[address]) 25 MCG (1000 UT) tablet Take 1 tablet (1,000 Units total) by mouth. 09/03/2022 Active clopidogrel (PLAVIX) 75 MG tablet SMARTSI Tablet(s) By Mouth Daily 10/02/2022 Active finasteride (PROSCAR) 5 MG tablet Take 1 tablet (5 mg total) by mouth. 09/03/2022 Active metoPROLOL TARTRATE (LOPRESSOR) 100 MG tablet SMARTSI Tablet(s) By Mouth Twice Daily 10/02/2022 Active niacin (NIASPAN) 750 MG CR tablet TAKE 2 TABLETS BY MOUTH ONCE A DAY AT BEDTIME 05/25/2023 Active omega-3 fatty acids 1000 MG Cap capsule Take 1 capsule (1,000 mg total) by mouth. 09/03/2022 Active Multiple Vitamin (MULTIVITAMIN ADULT PO) Take 1 tablet by mouth. 09/03/2022 Active Active Problems No known active problems Family History Medical History Relation Name Comments Cancer, Prostate Brother Willaim Cancer, Bladder Father Cancer, Prostate Paternal Uncle Shahab Eller Cancer, Kidney Neg Hx Relation Name Status Comments Brother Araseli Alive Father Paternal Uncle Shahab Eller Social History Tobacco Use Types Packs/Day Years Used Date Smoking Tobacco: Never Smokeless Tobacco: Never Tobacco Cessation:Counseling Given: Not Answered Sex and Gender Information Value Date Recorded Sex Assigned at Male 07/30/2023 11:29 PM EST Gender Identity Male 07/30/2023 11:29 PM EST Sexual Orientation Not on file Last Filed Vital Signs Vital Sign Reading Time Taken Comments Blood Pressure 120/71 07/04/2023 9:34 AM EST Pulse 64 07/04/2023 9:34 AM EST Temperature - - Respiratory Rate 16 07/04/2023 9:34 AM EST Oxygen Saturation - - Inhaled Oxygen Concentration - - Weight 106 kg (234 lb) 07/04/2023 9:34 AM EST Pe r pt Height 170.2 cm (5' 7 ) 07/04/2023 9:34 AM EST P er pt Body Mass Index 36.65 07/04/2023 9:34 AM EST Plan of Treatment Health Maintenance Due Date Last Done Comments Hepatitis C Virus Screening 1965 HIV Screening 10/29/1976 DTaP/Tdap/Td Vaccines (1 - Tdap) 10/29/1982 Colonoscopy 10/29/2008 Pneumococcal Vaccines 50+ (1 of 1 - PCV) 10/29/2013 Zoster (Shingles) Vaccine (1 of 2) 10/29/2013 RSV Vaccine 60 years and older and Patients (1 - Risk 60-74 years 1-dose series) 2023 Influenza Vaccine 02/28/2024 COVID-19 Vaccine ( - 2023-2 5 season) 2024 06/09/2021, 11/06/2020, 10/09/2020 Hepatitis B Vaccines Aged Out No long er eligible based on patient's age to complete this topic Pneumococcal Vaccine: Pediatric (0-5 Years) and At-Risk Patients (6 to 49 Years) Aged Out No longer eligible b ased on patient's age to complete this topic Care Teams Lead Front Desk Agent Relationship Specialty Start Date End Date Jules Navarrete MD [address] [place] [id number] PCP - General 08/29/22
--- NOTE | 2024-08-29 15:10 | A.OFFVIS_ITS ---
Intake Visit Reasons: 4M PSA(Elevated) Intake Note: Patient is present for 4M PSA ELEVATED Urology Medication:FINASTERIDE Antibiotic Allergy:NONE Blood Thinner:ASPIRIN Director Of Patient Financial Services Required: No Allergies Dust mites Allergy (Unknown, Uncoded 08/29/24 15:10) Unknown HPI Comments Details: Matt is a very pleasant male. He is a patient of Dr Navarrete. He is seen seen in the office today for the following urologic conditions. - Prostate Cancer Grade Group 1 Telemedicine Evaluation 15 min Consultation [employer] Ariella Video Discussed current PSA has continued to increase The remains inconsistency between PSA measurement and prior biopsy with genetic findings Recommend intervention He will decide between coiling back Dr. Llamas versus Dr. Cobian at [facility] for seed placement Previously had meeting with Dr. Chambers regarding seeds, Dr. Llamas regarding prostatectomy Polaris result retained from [facility] shows active surveillance category PSA 11/20 6.2. 02/19 6.8, 08/23 8.9 He is leaning towards brachytherapy. Dr. Cobian is now the physician at [facility] performing these procedures. Prostate Cancer - Multi core, Low Grade, Grade Group 1 (05/21) PSA at diagnosis - 4.5 on finasteride TRUS size 40gm Targeted Biopsy 15 cores Histologic grade: 3+3=6 (Grade group 1) [place] score: 3+3=6 (Parts B - 5%, E- 10%, G- 10%, I- 10%, J - 30%, K - 25% and O - 5%) Number cores positive: 7 Total number of cores: 15 Periprostatic fat inv: Not identified Seminal vesicle inv.: Not identified Perineural inv.: Not identified Imaging - 07/20 MRI - 07/20 PI-RADS for 8 mm right anterior peripheral straddling the mid gland to the apex - 06/21 MRI PI-RADS 4 - 10 mm right anterior localized Polaris 07/21 - ultra low risk group, 1.4% 10 year progression risks, active surveillance category Elevated PSA/Abnormal CRISTI: He presents for further evaluation of elevated PSA. Current management is finasteride. Laboratory investigations include 12/16 , a total PSA evaluation 4.5 04/18 3.9 F 20%. 10/17 3.9, 09/20 6.2, 12/18 2.9, 06/20 4.5 [facility] Medical History Hyperlipidemia Seasonal allergies Obesity Sleep apnea Myocardial infarction HTN (hypertension) Elevated PSA Surgical History Hx of coronary artery bypass graft History of mandibular surgery Family History Father Bladder cancer Social History Patient Tobacco Use Status: Never used Tobacco Review of Systems Const All systems reviewed & are unremarkable except as noted in HPI and below Reports no additional complaints Resp Reports no additional complaints GI Reports no additional complaints Reports as per HPI Musc Reports no additional complaints Physical Exam Telemedicine evaluation Appropriate responses Regular breathing rate and rhythm HEENT Head: Yes normal to inspection Ears: hearing grossly normal bilaterally Eyes General: appearance normal, both eyes and all related structures Neck Neck: Yes normal visual inspection Chest Chest palpation & inspection: normal inspection of the chest Resp Effort & Inspection: normal respiratory effort and able to speak in complete sentences Telehealth Telehealth Location of provider rendering services: practice address Location of patient: address on file Patient Identification confirmed using: Name, : Yes Telehealth method: voice only Patient verbally consented to treatment: Yes Patient verbally consented to billing insurance company: Yes Patient informed of any privacy concerns related to visit: Yes Assessment & Plan Assessment & Plan (1) Bladder outlet obstruction: Code(s): N32.0 - Bladder-neck obstruction Category: Medical (2) Prostate cancer: Code(s): C61 - Malignant neoplasm of prostate Category: Medical Plan Four month follow-up G Code G2211 Has been applied in accordance with CMS guidelines ( Medicare and Medicaid programs; [place] 2023 Payment Policies ) to convey the inherent complexity in ongoing patient care within the urology clinic. This deliberate utilization aligns with the visits complexity associated with medical care services serving as a focal point for necessary healthcare, addressing the patient's singular serious or complex condition. This judicious use ensure was appropriate reimbursement, especially in the context of managing such conditions within our specialized, longitudinal urologic practice. This patient has a complex and chronic urologic condition that requires longitudinal follow-up. CMS, Medicare and Medicaid programs; [place] 2023 Payment Policies Fed. Reg 88 (99): [id number] (Mar.052022) Orders: Orders Prostate Specific Antigen 4 Months C61 - Malignant neoplasm of prostate Patient Instructions: Imaging studies, laboratory and physical exam results were discussed and reviewed in detail. No major barriers to patient understanding were identified. An opportunity to ask questions regarding the treatment plan was provided. All questions were answered. The patient expressed understanding and agreement with the above treatment plan. The patient is aware they should contact our office by phone for worsening of their current condition or the appearance of new urologic symptoms. Compliance is encouraged with any medications and followup testing that is ordered. It is a privilege to participate in the urologic care of your patient. If you have any questions or concerns regarding treatment for the above conditions, or other urologic issues, please do not hesitate to contact me. The office telephone contact is [phone]. This note is constructed using voice recognition software. While every effort has been made to ensure accuracy catalogue maker errors may have been included. Yours sincerely, Dr Philip Drake MD, [facility] - Urology Providers of Expert, Compassionate Care for the Genitourinary System Coding Level of Care Code Tele Est Pt Level 3 (16014) Diagnoses Bladder outlet obstruction N32.0 Prostate cancer C61
== END 2024-08-29 15:58 | disposition home or self-care (01) ==
LOC: HO.HUSH 15:05
PROVIDERS: PCP Internal Medicine; Visit Provider Urology
DX: N32.0 Bladder-neck obstruction (principal); C61 Malignant neoplasm of prostate
CPT/HCPCS: 99213

== ENCOUNTER 2024-11-19 15:23 | Outpatient (AMB) | payer BC, SELFPAY ==
--- NOTE | 2024-11-19 15:28 | MHC.OFFVIS ---
Intake Visit Reasons: 4M PSA/Oncology Follow up(PSA?) Intake Note: Patient is present for 4M PSA/ONCOLOGY F/U Urology Medication:FINASTERIDE Antibiotic Allergy:NONE Blood Thinner:ASPIRIN Division Operations Specialist Required: No Allergies Dust mites Allergy (Unknown, Uncoded 11/19/24 15:29) Unknown HPI Comments Details: Matt is a very pleasant male. He is a patient of Dr Navarrete. He is seen seen in the office today for the following urologic conditions. - Prostate Cancer Grade Group 1 Telemedicine Evaluation 15 min Consultation [employer] Ariella Video Interested in seed placement if restaging shows adequate containment. Dr. Cobian office for repeat MRI and repeat biopsy. MRI has been completed 11/21 - prostate MRI. Most recent PSA 8.9. Dynamic pre and postcontrast imaging organized. Multi parametric. Prostate volume 35 cc. Peripheral zone lesion. 2.4 x 0.6 x 1.2 cm. Located right anterior portion of the peripheral zone at the mid gland contracts and abuts anterior fibromuscular stroma without definitive extra glandular extension. Based on findings would move with standard biopsy technique in order to be completed in the time of the fashion versus targeted Previously had meeting with Dr. Chambers regarding seeds, Dr. Llamas regarding prostatectomy Polaris result retained from [facility] shows active surveillance category PSA 11/20 6.2. 02/19 6.8, 08/23 8.9 He is leaning towards brachytherapy. Dr. Cobian is now the physician at [facility] performing these procedures. Prostate Cancer - Multi core, Low Grade, Grade Group 1 (05/21) PSA at diagnosis - 4.5 on finasteride TRUS size 40gm Targeted Biopsy 15 cores Histologic grade: 3+3=6 (Grade group 1) Kylie score: 3+3=6 (Parts B - 5%, E- 10%, G- 10%, I- 10%, J - 30%, K - 25% and O - 5%) Number cores positive: 7 Total number of cores: 15 Periprostatic fat inv: Not identified Seminal vesicle inv.: Not identified Perineural inv.: Not identified Imaging - 07/20 MRI - 07/20 PI-RADS for 8 mm right anterior peripheral straddling the mid gland to the apex - 06/21 MRI PI-RADS 4 - 10 mm right anterior localized Polaris 07/21 - ultra low risk group, 1.4% 10 year progression risks, active surveillance category Elevated PSA/Abnormal CRISTI: He presents for further evaluation of elevated PSA. Current management is finasteride. Laboratory investigations include 12/16 , a total PSA evaluation 4.5 04/18 3.9 F 20%. 10/17 3.9, 09/20 6.2, 12/18 2.9, 06/20 4.5 PFSH Medical History Hyperlipidemia Seasonal allergies Obesity Sleep apnea Myocardial infarction HTN (hypertension) Elevated PSA Surgical History Hx of coronary artery bypass graft History of mandibular surgery Family History Father Bladder cancer Social History Patient Tobacco Use Status: Never used Tobacco Review of Systems Const All systems reviewed & are unremarkable except as noted in HPI and below Reports no additional complaints Resp Reports no additional complaints GI Reports no additional complaints Reports as per HPI Musc Reports no additional complaints Physical Exam Telemedicine evaluation Appropriate responses Regular breathing rate and rhythm HEENT Head: Yes normal to inspection Ears: hearing grossly normal bilaterally Eyes General: appearance normal, both eyes and all related structures Neck Neck: Yes normal visual inspection Chest Chest palpation & inspection: normal inspection of the chest Resp Effort & Inspection: normal respiratory effort and able to speak in complete sentences Telehealth Telehealth Location of provider rendering services: practice address Location of patient: address on file Patient Identification confirmed using: Name, : Yes Telehealth method: voice only Patient verbally consented to treatment: Yes Patient verbally consented to billing insurance company: Yes Patient informed of any privacy concerns related to visit: Yes Assessment & Plan Assessment & Plan (1) Prostate cancer: Code(s): C61 - Malignant neoplasm of prostate Category: Medical Plan Risks, benefits and alternatives to therapy were discussed. These include but are not limited to infection, bleeding, damage to local organs and tissues, need for further interventions. Anesthetic risks regarding cardiac arrhythmia, blood clots, and potential mortality were discussed. The patient understands the typical recovery time and the outpatient nature of the procedure. After consideration of these risks the patient gives full informed consent and they wish to move ahead with the procedure. - repeat prostate biopsy Medications: New levofloxacin take 1 tablet day before procedure, 1 tablet day of procedure and 1 tablet day after procedure 500 mg PO DAILY 3 days 3 tabs 0RF C61 - Malignant neoplasm of prostate Patient Instructions: This note is constructed using voice recognition software. While every effort has been made to ensure accuracy bi developer errors may have been included. Imaging studies, laboratory and physical exam results were discussed and reviewed in detail. No major barriers to patient understanding were identified. An opportunity to ask questions regarding the treatment plan was provided. All questions were answered. The patient expressed understanding and agreement with the above treatment plan. The patient is aware they should contact our office by phone for worsening of their current condition or the appearance of new urologic symptoms. Compliance is encouraged with any medications and followup testing that is ordered. It is a privilege to participate in the urologic care of your patient. If you have any questions or concerns regarding treatment for the above conditions, or other urologic issues, please do not hesitate to contact me. The office telephone contact is [phone]. Sincerely, Dr Philip Drake MD, [facility] - Urology Compassionate Specialist Care for the Genitourinary System Coding Level of Care Code Tele Est Pt Level 3 (81464) Complex EM visit Add On G2211 Diagnoses Prostate cancer C61
--- OUTSIDE RECORDS SUMMARY | 2024-11-19 18:05 | XMS_ITS ---
Author Name [facility] Organization Unknown History of Medication Use Medication Directions Dispensed Refills Start Date End Date Stat Finasteride 1mg Tablet 03/04/2024 active MultiVitamin 03/04/2024 active niacin (NIASPAN) 750 MG CR tablet TAKE 2 TABLETS BY MOUTH ONCE A DAY AT BEDTIME 05/25/2023 active metoPROLOL TARTRATE (LOPRESSOR) 100 MG tablet SMARTSI Tablet(s) By Mouth Twice Daily 10/02/2022 active finasteride (PROSCAR) 5 MG tablet Take 1 tablet (5 mg total) by mouth. 09/03/2022 active Aspirin 01/28/2016 active Vitamin d 1000UNIT Tablet 01/28/2016 active Problems Problem Status Onset Date Problem Type Date of Resolution Source Plantar fasciitis active 2016-01-28 ProblemAct ENS_PODCRCT Equinus,Tailor bunion, acquired pes cavus, plantar flex met, LEFT other acquired deformities active 2016-01-28 ProblemAct ENS_PODCRCT Metatarsalgia active 2024-03-04 ProblemAct ENS_ PODCRCT Pain in left foot active 2024-03-04 EncounterDiagnosisAct ENS_PODCRCT Pain in right foot active 2024-03-04 EncounterDiagnosisAc t ENS_PODCRCT Plantar Flexed Metatarsal - Metatarsalgia, RIGHT foot active 2024-03-04 EncounterDiagnosisAct ENS_PO DCRCT Encounters Encounter Type Encounter Reason Primary Diagnosis Location Date Ambulatory Malignant neoplasm of prostate Malignant neoplasm of prostate [facility] 07/04/2023 Care Team Organization Name Specialty Phone Email Start Date End [facility] 06/13/2024 [facility] Jules Chan Primary Care 08/19/2023 5 [facility] JULES CHAN Primary Care 07/04/2023 5 [facility] 12/30/2022 [facility] Jules Chan Primary Care PodiatryCSelena lambert Primary Care
--- OUTSIDE RECORDS SUMMARY | 2024-11-19 18:05 | XMS_ITS | Clinical Summary ---
Author Organization [facility] Address [address] [place] [address] Care Team Providers Care Mop Man Name Role Phone Jules Navarrete Primary Care Provider [phone] Allergies No known active allergies Medications [id number] -fish oil-D3 350 mg- 1,000 unit capsule [...] Date Coronary artery disease 06/13/2023 Hypercholesterolemia 06/13/2023 Encounters Date Type Department Care Team Description 10/28/2024 4:55 AM EDT - 10/28/2024 11:59 PM EDT Hospital Encounter [facility] Radiation Oncology [address] - [place] [address] Brian Cobian MD Arrived Discharge Disposition: Home or Self Care () 10/02/2024 Orders Only [facility] - External Imaging [address] [place] [id number] Radiology, External 09/17/2024 3:00 PM EST - 09/17/2024 11:59 PM EST Hospital Encounter [facility] Radiation Oncology [address] [place] [id number] Brian Cobian MD Prostate cancer (Primary Dx) Discharge Disposition: Home or Self Care () 09/17/2024 Orders Only [facility] Radiation Oncology [address] [place] [id number] Brian Cobian MD Prostate cancer (Primary Dx) 09/03/2024 9:45 AM EST - 09/03/2024 11:59 PM EST Hospital Encounter [facility] Radiation Oncology [address] [place] [address] Discharge Disposition: Home or Self Care () from Last 3 Months Family History Medical History Relation Name Comments [...] Sign Reading Time Taken Comments Blood Pressure 124/75 09/17/2024 3:15 PM EST Pulse 72 09/17/2024 3:15 PM EST Temperature 36.9 ??C (98.4 ??F) 06/13/2023 1 1:21 AM EST Respiratory Rate 16 09/17/2024 3:15 PM EST Oxygen Saturation 97% 09/17/2024 3:15 PM EST Inhaled Oxygen Concentration - - Weight 121.3 kg (267 lb 6.4 oz) 09/17/2024 3:15 PM EST Height - - Body Mass Index - - Plan of Treatment Health Maintenance Due Date Last Done Comments Cologuard 1965 Colon Cancer Screening 1965 Colonoscopy 1965 FOBT / Fit Test 1965 HIV Screening 1965 Hepatitis C Screening 1965 Sigmoidoscopy 1965 Pneumococcal Vaccine: 50+ Years (1 of 2 - PCV) 10/29/1982 DTaP,Tdap,and Td Vaccines (1 - Tdap) 10/29/1985 Zoster Vaccines (2 of 2) 09/23/2022 022, 07/29/2022, 04/04/2022 COVID-19 Vaccine (5 - season) 2024 05/05/2022, 06/09/2021, 11/06/2020, Additional history exists Alcohol/Substance Use Screening 07/30/2024 Depression Screening and Follow-Up 07/30/2024 Social Drivers of Health Annual Screening 07/30/2024 Influenza Vaccine (Season Ended) 2025 RSV Vaccine (60+ years old and patients) (1 - 1-dose 75+ series) 10/29/2038 Hepatitis B Vaccines Aged Out No long er eligible based on patient's age to complete this topic Procedures * Due to [place] [employer] law, this organization might not be sharing negative HIV tests. Procedure Name Priority Date/Time Associated Diagnosis Comments AMB EXTERNAL MRI PROSTATE, O UTSIDE RESULT 10/02/2024 from Last 3 Months Results * Due to [place] [employer] law, this organization might not be sharing negative HIV tests. * MRI Prostate, Outside Result (10/02/2024) Anatomical Region Laterality Modality Other 10/02/2024 us Onbase Scan Abby AMB EXTERNAL RESULT PROCEDURE S Final Result from Last 3 Months Insurance BCBS OUT OF STATE PPO Care Teams Mop Man Relationship Specialty Start Date [place] [address] PCP - General Internal Medicine 06/13/23
--- OUTSIDE RECORDS SUMMARY | 2024-11-19 18:05 | XMS_ITS | Referral Summary ---
Author Organization [facility] Address [address] [place] [address] Care Team Providers Care Brake Adjuster Name Role Phone Jules Navarrete Primary Care Provider [phone] Encounters Date Type Department Care Team Description 10/28/2024 4:55 AM EDT - 10/28/2024 11:59 PM EDT Hospital Encounter [facility] Radiation Oncology [address] [place] [id number] Brian Cobian MD Arrived Discharge Disposition: Home or Self Care () 10/02/2024 Orders Only [facility] - External Imaging [address] [place] [id number] Radiology, External 09/17/2024 Orders Only [facility] Radiation Oncology [address] [place] [id number] Brian Cobian MD Prostate cancer (Primary Dx) 09/17/2024 3:00 PM EST - 09/17/2024 11:59 PM EST Hospital Encounter [facility] Radiation Oncology [address] [place] [id number] Brian Cobian MD Prostate cancer (Primary Dx) Discharge Disposition: Home or Self Care () 09/03/2024 9:45 AM EST - 09/03/2024 11:59 PM EST Hospital Encounter [facility] Radiation Oncology [address] [place] [address] Discharge Disposition: Home or Self Care () from Last 3 Months Allergies No known active allergies Medications [id number] -fish oil-D3 350 mg- 1,000 unit capsule [...] - Plan of Treatment Not on file Procedures * Due to [place] state law, this organization might not be sharing negative HIV tests. Procedure Name Priority Date/Time Associated Diagnosis Comments AMB EXTERNAL MRI PROSTATE, O UTSIDE RESULT 10/02/2024 from Last 3 Months Results * Due to [place] state law, this organization might not be sharing negative HIV tests. * MRI Prostate, Outside Result (10/02/2024) Anatomical Region Laterality Modality Other 10/02/2024 us Onbase Scan Abby AMB EXTERNAL RESULT PROCEDURE S Final Result from Last 3 Months Insurance [facility] OUT OF STATE PPO Care Teams Brake Adjuster Relationship Specialty Start Date End Date Jules Navarrete [facility] [address] [address] PCP - General Internal Medicine 06/13/23
--- OUTSIDE RECORDS SUMMARY | 2024-11-19 18:05 | XMS_ITS | Clinical Summary ---
Author Organization [facility] Address [address] [place] [address] Care Team Providers Care Assistant Front Desk Manager Name Role Phone Jules Navarrete MD Primary Care Provider [phone] Allergies Active Allergy Reactions Criticality Noted Date Comments Cat Dander Other (See Comments) 07/04/2023 Dust Mite Extract Other (See Comments) 07/04/20 Medications aspirin enteric coated (ECOTRIN LOW STRENGTH) 81 [...] Active Active Problems No known active problems Encounters Date Type Department Care Team Description 09/04/2024 Telephone [facility] [place] [address] [place] [address] Edd Llamas MD Appointment from Last 3 Months Family History Medical History Relation Name Comments Cancer, Prostate Brother Willairobby Cancer, Bladder Father Cancer, Prostate Paternal Uncle Shahab Eller Cancer, Kidney Neg Hx Relation Name Status Comments Brother Willaim Alive Father Paternal Uncle Shahab Eller Social History Tobacco Use Types Packs/Day Years Used Date Smoking Tobacco: Never Smokeless Tobacco: Never Tobacco Cessation:Counseling Given: Not Answered Sex and Gender Information Value Date Recorded Sex Assigned at Male 07/30/2023 11:29 PM EST Legal Sex Male 10:00 AM EST Gender Identity Male 07/30/2023 11:29 PM [...] series) 2023 Influenza Vaccine 02/28/2024 COVID-19 Vaccine (2023-2 5 season) 2024 06/09/2021, 11/06/2020, 10/09/2020 Hepatitis B Vaccines Aged Out No long er eligible based on patient's age to complete this topic Insurance [facility] PREFERRED Care Teams Assistant Front Desk Manager Relationship Specialty Start Date End Date Jules Navarrete MD [address] [place] [id number] PCP - General 08/29/22
== END 2024-11-19 16:30 | disposition home or self-care (01) ==
LOC: HO.HUSH 15:23
PROVIDERS: PCP Internal Medicine; Visit Provider Urology
DX: C61 Malignant neoplasm of prostate (principal)
CPT/HCPCS: 99213

== ENCOUNTER → 2024-11-19 15:23 | Outpatient (BNVA) | payer BC, SELFPAY | PROVIDERS: PCP Internal Medicine; Visit Provider Urology ==

== ENCOUNTER 2024-12-11 07:30 | Outpatient (REF) | payer BC, SELFPAY ==
--- OUTSIDE RECORDS SUMMARY | 2024-12-11 07:32 | XMS_ITS | Clinical Summary ---
Author Organization [facility] Address [address] [place] [address] Care Team Providers Care Animal Ecologist Name Role Phone Jules Navarrete Primary Care Provider [phone] Allergies No known active allergies Medications [id number]-epa -fish oil-D3 350 mg- 1,000 unit capsule [...] - 10/28/2024 11:59 PM EDT Hospital Encounter [facility] Radiation Oncology [address] [place] [address] - [place] [address] Brian Cobian MD Discharge Disposition: Home or Self Care () 10/02/2024 Orders Only [facility] - External Imaging [address] [place] [address] Radiology, External 09/17/2024 3:00 PM EST - 09/17/2024 11:59 PM EST Hospital Encounter [facility] Radiation Oncology [address] [place] [address] Brian Cobian MD Prostate cancer (Primary Dx) Discharge Disposition: Home or Self Care () 09/17/2024 Orders Only [facility] Radiation Oncology [address] [place] [address] Brian Cobian MD Prostate cancer (Primary Dx) from Last 3 Months Family History Medical [...] this topic Procedures * Due to [place] [employer] law, this organization might not be sharing negative HIV tests. Procedure Name Priority Date/Time Associated Diagnosis Comments AMB EXTERNAL MRI PROSTATE, O UTSIDE RESULT 10/02/2024 from Last 3 Months Results * Due to [place] [employer] law, this organization might not be sharing negative HIV tests. * MRI Prostate, Outside Result (10/02/2024) Anatomical Region Laterality Modality Other 10/02/20[address] us [address] [facility] AMB EXTERNAL RESULT PROCEDURE S Final Result from Last 3 Months Insurance BCBS OUT OF STATE PPO Care Teams Animal Ecologist Relationship Specialty Start Date End Date Jules Navarrete [address] [address] PCP - General Internal Medicine 06/13/23
--- OUTSIDE RECORDS SUMMARY | 2024-12-11 07:32 | XMS_ITS | Continuity of Care Document ---
Author Organization [facility] Address [address] [place] [address]- Care Team Providers Care J2Ee Consultant Name Role Phone Rosalba LUONG, Jules Pantoja Primary Care Physician Encounter [facility] Date(s): 11/09/24 - 12/09/24 [facility] [address] [place] [phone]- Encounter Type: Triage Allergies, Adverse Reactions, Alerts Substance Criticality Severity Reaction Reaction Severity Status Cats Active house dust mite allergen extract Active Immunizations Given and Recorded Vaccine Date Status Refusal Reason zoster vaccine, inactivated 07/29/22 Recorded zoster vaccine, inactivated 04/04/22 Recorded [id number] 12y+ bivalent booster vax 05/05/22 Recorded SARS-CoV-2 (COVID-19) mRNA-1273 vaccine 06/09/21 R ecorded SARS-CoV-2 (COVID-19) mRNA-1273 vaccine 11/06/20 R ecorded SARS-CoV-2 (COVID-19) mRNA-1273 vaccine 10/09/20 R ecorded Medications Aspirin Low Dose 81 mg oral delayed release tablet 1 tablet, By Mouth, Daily, # 90 tablet, 3 Refills, Maintenance, 04/08/24 10:40:00 AM EDT, [facility], 170, cm, 10/11/23 16:05:00 EDT, Height, 111.2, kg, 09/06/22 18:41:00 EST, Dry Weight Start Date: 04/08/24 Status: Ordered Quantity: 90.0 Unit: tablet Repeat number: 1 atorvastatin 80 mg oral tablet 1 tablet, By Mouth, Daily at bedtime, # 90 tablet, 3 Refills, Maintenance, 09/18/24 7:29:00 AM EST, [id number], 170, cm, 10/11/23 16:05:00 EDT, Height Start Date: 09/18/24 Status: Ordered Quantity: 90.0 Unit: tablet Repeat number: 1 cholecalciferol 1000 intl units oral tablet 1 tablet = 25 mcg, By Mouth, Daily at bedtime, Maintenance, 09/03/22 10:32:00 AM EST, Partial fill upon patient request if the prescription is for a schedule II opioid drug. Start Date: 09/03/22 Status: Ordered Repeat number: 1 EPA Fish Oil 1000 mg oral capsule 1 capsule = 1,000 mg, By Mouth, Daily at bedtime, Maintenance, 09/03/22 10:32:00 AM EST, Partial fillupon patient request if the prescription is for a schedule II opioid drug. Start Date: 09/03/22 Status: Ordered Repeat number: 1 fenofibrate 160 mg oral tablet 1 tablet = 160 mg, By Mouth, Daily, # 30 tablet, 11 Refills, Maintenance, 10/01/24 8:19:00 AM EST, Tablet, [facility]/pharmacy #[id number], Partial fill upon patient request if the prescription is for a schedule IIopioid drug., 170, cm, 10/01/24 8:06:00 EST, Height Start Date: 10/01/24 Status: Ordered Quantity: 30.0 Unit: tablet Repeat number: 12 finasteride 5 mg oral tablet 1 tablet = 5 mg, By Mouth, Daily at bedtime, Maintenance, 09/03/22 10:32:00 AM EST, Partial fill uponpatient request if the prescription is for a schedule II opioid drug. Start Date: 09/03/22 Status: Ordered Repeat number: 1 Metoprolol Tartrate 100 mg oral tablet 1 tablet, By Mouth, 2 times a day, # 180 tablet, 3 Refills, Maintenance, 09/18/24 7:30:00 AM EST, [facility], 170, cm, 10/11/23 16:05:00 EDT, Height Start Date: 09/18/24 Status: Ordered Quantity: 180.0 Unit: tablet Repeat number: 1 Multivitamin 1 tablet, By Mouth, Daily at bedtime, Maintenance, 09/03/22 10:33:00 AM EST, Partial fill upon patient request if the prescription is for a schedule II opioid drug. Start Date: 09/03/22 Status: Ordered Repeat number: 1 niacin 750 mg oral tablet, extended release = 1,500 mg, By Mouth, Daily at bedtime, Maintenance, 09/03/22 10:32:00 AM EST, Partial fill upon patient request if the prescription is for a schedule II opioid drug. Start Date: 09/03/22 Status: Ordered Repeat number: 1 Vashe Topical Solution 475 mL, Topically, Every 12 hours, 0 Refills, Maintenance, Solution Start Date: 09/11/22 Status: Ordered Repeat number: 1 Problem List Condition Confirmation Course Effective Dates Status H ealth Status Informant Coronary atherosclerosis due to calcified coronary lesion Confirmed Active CAD (coronary artery disease) Confirmed Active Dyslipidemia Confirmed Active Elevated blood-pressure reading without diagnosis of hypertension Confirmed Active Elevated lipoprotein A level Confirmed Active Obesity Confirmed Active Severe obesity Confirmed Active Social History Social History Type Response Smoking Status Never (less than 100 in lifetime) entered on: 10/11/23 Sex Sex Representation Male (finding) Patient Care team information Care Team Personnel Name: Gemma Priest RN Position: [facility] Hospital Precision Printing Worker Member Role: Primary Care Nurse Name: Grace Steiner Position: [facility] Outreach Member Role: Lifetime Consulting Physician Name: Jules Navarrete MD Position: [facility] Physician - Primary Care Member Role: PCP Address: [address] [place] [address] Telecom: Name: Willie Melo RN Position: [facility] RN Member Role: Primary Care Nurse Care Team Related Persons Name: KILO JOHNSON Insurance Providers Guarantor name: CARLOS HERNANDES Health Plan Information #: 1 Payer: [facility] ANTHEM PPO Member Number: NA Policy Number: NA Group Number: NA
--- OUTSIDE RECORDS SUMMARY | 2024-12-11 07:32 | XMS_ITS | Clinical Summary ---
Author Organization [facility] Address [address] [place] [address] Care Team Providers Care Patient Transportation Driver Name Role Phone Jules Navarrete MD Primary Care Provider [phone] Allergies Active Allergy Reactions Criticality Noted Date Comments Cat Dander Other (See Comments) 07/04/2023 Dust Mite Extract Other (See Comments) 07/04/20 23 Medications aspirin enteric coated (ECOTRIN LOW STRENGTH) [...] - Risk 60-74 years 1-dose series) 2023 COVID-19 Vaccine (2023-2 5 season) 2024 06/09/2021, 11/06/2020, 10/09/2020 Influenza Vaccine 02/27/2025 Hepatitis B Vaccines Aged Out No long er eligible based on patient's age to complete this topic Insurance [facility] PREFERRED Care Teams Patient Transportation Driver Relationship Specialty Start Date End Date Jules Navarrete MD [address] [place] [address] PCP - General 08/29/22
--- OUTSIDE RECORDS SUMMARY | 2024-12-11 07:32 | XMS_ITS | Continuity of Care Document ---
Author Organization [facility] Address [address] [place] [phone]- Care Team Providers Care Tie Loader Name Role Phone Rosalba LUONG, Jules Pantoja Primary Care Physician [phone] Encounter [facility] Date(s): 11/09/24 - 12/09/24 [facility] [address] [place] [phone]- Encounter Type: Triage Allergies, Adverse Reactions, Alerts Substance Criticality Severity Reaction Reaction Severity Status Cats Active house dust mite allergen extract Active Immunizations Given and Recorded Vaccine Date Status Refusal Reason zoster vaccine, inactivated 07/29/22 Recorded zoster vaccine, inactivated 04/04/22 Recorded [id number] 12y+ bivalent booster vax 05/05/22 Recorded SARS-CoV-2 (COVID-19) mRNA-1273 vaccine 06/09/21 R ecorded SARS-CoV-2 (COVID-19) mRNA-1273 vaccine 11/06/20 R ecorded SARS-CoV-2 (COVID-19) mRNA-1273 vaccine 10/09/20 R ecorded Medications Aspirin Low Dose 81 mg oral delayed release tablet 1 tablet, By Mouth, Daily, # 90 tablet, 3 Refills, Maintenance, 04/08/24 10:40:00 AM EDT, [facility], 170, cm, 10/11/23 16:05:00 EDT, Height, 111.2, kg, 09/06/22 18:41:00 EST, Dry Weight Start Date: 04/08/24 Status: Ordered Quantity: 90.0 Unit: tablet Repeat number: 1 atorvastatin 80 mg oral tablet 1 tablet, By Mouth, Daily at bedtime, # 90 tablet, 3 Refills, Maintenance, 09/18/24 7:29:00 AM EST, [facility], 170, cm, 10/11/23 16:05:00 EDT, Height Start [...] Refills, Maintenance, 10/01/24 8:19:00 AM EST, Tablet, [facility]/pharmacy #[id number], Partial fill upon patient request if [...] Maintenance, 09/18/24 7:30:00 AM EST, [facility], 170, cm, 10/11/23 16:05:00 EDT, Height Start [...] Team Personnel Name: Gemma Priest RN Position: [facility] Hospital Director Distribution Member Role: Primary Care Nurse Name: Grace Steiner Position: [facility] Outreach Member Role: Lifetime Consulting Physician Name: Jules Navarrete MD Position: [facility] Physician - Primary Care Member Role: PCP Address: [address] [place] [address] Telecom: Name: Willie Melo RN Position: [facility] RN Member Role: Primary Care Nurse Care Team Related Persons Name: KILO JOHNSON Insurance Providers Guarantor name: CARLOS HERNANDES Health Plan Information #: 1 Payer: [facility] ANTHEM PPO Member Number: NA Policy Number: NA Group Number: NA
--- OUTSIDE RECORDS SUMMARY | 2024-12-11 07:32 | XMS_ITS | Referral Summary ---
Author Organization [facility] Address [address] [place] [address] Care Team Providers Care Electroplating Technician Name Role Phone Jules Navarrete Primary Care Provider [phone] Encounters Date Type Department Care Team Description 10/28/2024 4:55 AM EDT - 10/28/2024 11:59 PM EDT Hospital Encounter [facility] Radiation Oncology [address] [place] [address] Brian Cobian MD Discharge Disposition: Home or Self Care () 10/02/2024 Orders Only [facility] - External Imaging [address] [place] [address] Radiology, External 09/17/2024 Orders Only [facility] Radiation Oncology [address] [place] [address] Brian Cobian MD Prostate cancer (Primary Dx) 09/17/2024 3:00 PM EST - 09/17/2024 11:59 PM EST Hospital Encounter [facility] Radiation Oncology [address] [place] [address] Brian Cobian MD Prostate cancer (Primary Dx) Discharge Disposition: Home or Self Care () from Last 3 Months Allergies No known active allergies Medications [id number]-[id number]-epa -fish oil-D3 350 mg- 1,000 unit capsule [...] Not on file Procedures * Due to [place] law, this organization might not be sharing negative HIV tests. Procedure Name Priority Date/Time Associated Diagnosis Comments AMB EXTERNAL MRI PROSTATE, O UTSIDE RESULT 10/02/2024 from Last 3 Months Results * Due to [employer] law, this organization might not be sharing negative HIV tests. * MRI Prostate, Outside Result (10/02/2024) Anatomical Region Laterality Modality Other 10/02/2024 us Onbase Scan Abby AMB EXTERNAL RESULT PROCEDURE S Final Result from Last 3 Months Insurance BCBS OUT OF STATE PPO Care Teams Electroplating Technician Relationship Specialty Start Date [place] [address] PCP - General Internal Medicine 06/13/23
[2024-12-11] MEDS: Lidocaine HCl 1 % MPF 5 ML VIAL 10 ML SUBCUT (08:57)
[2024-12-11] MEDS: levoFLOXacin 500 MG TABLET PO (08:58)
--- NOTE | 2024-12-12 17:30 | W.PM.OPN ---
Operative Note Operative Note Date of Service: 12/11/24 Narrative: Preoperative diagnosis: Prostate Cancer Postoperative diagnosis: Prostate Cancer Procedure: 1. transrectal ultrasound measurement of prostate 2. transrectal ultrasound-guided pudendal nerve block 3. transrectal ultrasound-guided prostate biopsy 12 core Surgeon: Dr. Philip Drake Anesthetic: 10cc 1% lidocaine Indications for procedure: Prostate Cancer - PSA 9.3, 35 g prostate, 2.4 cm right anterior peripheral zone mid gland lesion, no evidence OLIVA Counselling: Technical aspects, risks and benefits of proposed procedure were discussed in full. All questions have been answered, written consent has been obtained and patient agrees to proceed. Procedure: The patient was brought into the procedure area and placed in a left lateral decubitus position. Patient identity confirmed. Perioperative antibiotics confirmed. Safety pause time out performed. CRISTI was performed to dilate rectal sphincter Iodine 10cc with 60 cc gel was placed per rectum to reduce infection risk using a catheter tip syringe. 8 Hz Leonard rectal end-fire ultrasound probe was placed transrectally without difficulty. The prostate was visualized. Seminal vesicles were normal. Prostate margins were clearly demarcated. Bladder was seen superiorly. No cystic structures were noted Calcifications noted through surgical margin calcifications were noted at the surgical margin The prostate was otherwise heterogenous in nature - no clear prostatic nodules noted within peripheral or transitional zone. The prostate was measured in 3 dimensions Prostatic Width: 4.5 cm Prostatic Height: 3.7 cm Urethral Length: 4.6 cm Total volume equals : 40 ml An ultrasound-guided pudendal nerve block was performed using a 22 gauge spinal needle in the sagittal plane. 4 cc of 1% lidocaine placed at the junction of each seminal vesicle and 2 cc placed at the apex of the prostate. A 12 core biopsy was performed with 6 cores each side using an 18 gauge prostate biopsy gun. Two cores each were taken at the prostate apex, mid and base on each side. Cores were spaced between lateral and medial aspects. Each core was examined as placed on specimen foam as part of senior quality assurance engineer to ensure a minimum 1 cm of length and minimal discontinuity. He tolerated the procedure well with minimal rectal bleeding. Blood pressure remained stable following procedure. He was able to ambulate to bathroom after 5 minutes. Printed instructions regarding antibiotic use and common adverse events from the procedure such as low-grade temperature, potential infection and bleeding were given. He understands to call the office or go to an emergency room should any of these events arise. Pathology: 12 core prostate biopsy. CPT code 02455: Transrectal ultrasound; this is a diagnostic test for evaluation of the prostate and surrounding structures, looking for abnormalities or suspicious areas worrisome for cancer CPT code 57081: Biopsy, prostate; needle or punch, single or multiple, any approach CPT code 13439: Ultrasonic guidance for needle placement (eg, biopsy, aspiration, injection, localization device), imaging supervision and interpretation
== END 2024-12-11 07:31 | disposition home or self-care (01) ==
LOC: HO.US 07:30
PROVIDERS: PCP Internal Medicine; Visit Provider Urology
DX: C61 Malignant neoplasm of prostate (principal)
CPT/HCPCS: 55700; 76942; 88305; 88344; J2003

== ENCOUNTER → 2024-12-11 07:30 | Outpatient (BNV) | payer BC, SELFPAY | PROVIDERS: PCP Internal Medicine; Visit Provider Urology | DX: C61 Malignant neoplasm of prostate (principal) | CPT/HCPCS: 55700; 76872; 76942 ==

== ENCOUNTER 2024-12-25 10:24 | Outpatient (AMB) | payer BC, SELFPAY ==
--- NOTE | 2024-12-25 10:24 | A.OFFVIS_ITS ---
Intake Visit Reasons: Prostate biopsy results Intake Note: Patient is present for PROSTATE BIOPSY RESULTS Urology Medication:FINASTERIDE Antibiotic Allergy:NONE Blood Thinner:ASPIRIN Recruitment Consultant Required: No Allergies Dust mites Allergy (Unknown, Uncoded 12/25/24 10:26) Unknown HPI Comments Details: Matt is a very pleasant male. He is a patient of Dr Navarrete. He is seen seen in the office today for the following urologic conditions. - Prostate Cancer Grade Group 1 Send copy of letter to Dr. Cobian Telemedicine Evaluation 15 min Consultation avolution Ariella Video Recomend still a good candiate for seeds - the Grade Group 4 compent is small and there are no other risk factors such as PNI Repeat biopsy - Ultralow volume Lakeview score: 4+4=8 (right mid lateral 5%); 3+4=7 (left apex lateral 20%) 11/21 - prostate MRI. Most recent PSA 8.9. Dynamic pre and postcontrast imaging organized. Multi parametric. Prostate volume 35 cc. Peripheral zone lesion. 2.4 x 0.6 x 1.2 cm. Located right anterior portion of the peripheral zone at the mid gland contracts and abuts anterior fibromuscular stroma without definitive extra glandular extension. Based on findings would move with standard biopsy technique in order to be completed in the time of the fashion versus targeted Previously had meeting with Dr. Chambers regarding seeds, Dr. Llamas regarding prostatectomy Polaris result retained from [facility] shows active surveillance category PSA 11/20 6.2. 02/19 6.8, 08/23 8.9 He is leaning towards brachytherapy. Dr. Cobian is now the physician at [facility] performing these procedures. Histologic grade: Lakeview score: 4+4=8 (right mid lateral); 3+4=7 (left apex lateral) % of pattern 4: 20% of the tumor % of pattern 5: 0% Grade group: 4 and 2 Tumor quantitation: Number cores positive: 2 Total number of cores: 12 % of tissue involved: Less than 5% of all tissue examined Periprostatic fat inv.: Not identified Prostate Cancer - Multi core, Low Grade, Grade Group 1 (05/21) PSA at diagnosis - 4.5 on finasteride TRUS size 40gm Targeted Biopsy 15 cores Histologic grade: 3+3=6 (Grade group 1) Kylie score: 3+3=6 (Parts B - 5%, E- 10%, G- 10%, I- 10%, J - 30%, K - 25% and O - 5%) Number cores positive: 7 Total number of cores: 15 Periprostatic fat inv: Not identified Seminal vesicle inv.: Not identified Perineural inv.: Not identified Imaging - 07/20 MRI - 07/20 PI-RADS for 8 mm right anterior peripheral straddling the mid gland to the apex - 06/21 MRI PI-RADS 4 - 10 mm right anterior localized Polaris 07/21 - ultra low risk group, 1.4% 10 year progression risks, active surveillance category Elevated PSA/Abnormal CRISTI: He presents for further evaluation of elevated PSA. Current management is finasteride. Laboratory investigations include 12/16 , a total PSA evaluation 4.5 04/18 3.9 F 20%. 10/17 3.9, 09/20 6.2, 12/18 2.9, 06/20 4.5 PFSH Medical History Hyperlipidemia Seasonal allergies Obesity Sleep apnea Myocardial infarction HTN (hypertension) Elevated PSA Surgical History Hx of coronary artery bypass graft History of mandibular surgery Family History Father Bladder cancer Social History Patient Tobacco Use Status: Never used Tobacco Telehealth Telehealth Telehealth Platform: [facility] Location of provider rendering services: practice address Location of patient: address on file Patient Identification confirmed using: Name, : Yes Telehealth method: video Patient verbally consented to treatment: Yes Patient verbally consented to billing insurance company: Yes Patient informed of any privacy concerns related to visit: Yes Minutes spent on Phone/Video with Pt.: 15 Assessment & Plan Assessment & Plan (1) Prostate cancer: Code(s): C61 - Malignant neoplasm of prostate Category: Medical (2) Elevated PSA: Code(s): R97.20 - Elevated prostate specific antigen [PSA] Category: Medical Plan 3m f/u He will contact Dr Cobian Patient Instructions: This note is constructed using voice recognition software. While every effort has been made to ensure accuracy battery inspector errors may have been included. Imaging studies, laboratory and physical exam results were discussed and reviewed in detail. No major barriers to patient understanding were identified. An opportunity to ask questions regarding the treatment plan was provided. All questions were answered. The patient expressed understanding and agreement with the above treatment plan. The patient is aware they should contact our office by phone for worsening of their current condition or the appearance of new urologic symptoms. Compliance is encouraged with any medications and followup testing that is ordered. It is a privilege to participate in the urologic care of your patient. If you have any questions or concerns regarding treatment for the above conditions, or other urologic issues, please do not hesitate to contact me. The office telephone contact is [phone]. Sincerely, Dr Philip Drake MD, [facility] - Urology Compassionate Specialist Care for the Genitourinary System Coding Level of Care Code Tele Est Pt Level 3 (59127) Diagnoses Prostate cancer C61 Elevated PSA R97.20
--- OUTSIDE RECORDS SUMMARY | 2024-12-25 10:49 | XMS_ITS | Referral Summary ---
Author Organization [facility] Address [address] [place] [address] Care Team Providers Care Set Up And Lay Out Inspector Name Role Phone Jules Navarrete Primary Care Provider [phone] Encounters Date Type Department Care Team Description 10/28/2024 4:55 AM EDT - 10/28/2024 11:59 PM EDT Hospital Encounter [facility] Radiation Oncology [address] [place] [address] Brian Cobian MD Discharge Disposition: Home or Self Care () 10/02/2024 Orders Only [facility] - External Imaging [address] [place] [address] Radiology, External from Last 3 Months Allergies No known active allergies Medications [id number] -fish oil-D3 350 mg- 1,000 unit capsule [...] Not on file Procedures * Due to [place] [facility] law, this organization might not be sharing negative HIV tests. Procedure Name Priority Date/Time Associated Diagnosis Comments AMB EXTERNAL MRI PROSTATE, O UTSIDE RESULT 10/02/2024 from Last 3 Months Results * Due to [place] [facility] law, this organization might not be sharing negative HIV tests. * MRI Prostate, Outside Result (10/02/2024) Anatomical Region Laterality Modality Other 10/02/2024 us Onbase Scan Abby AMB EXTERNAL RESULT PROCEDURE S Final Result from Last 3 Months Insurance [employer] OUT OF STATE PPO Care Teams Set Up And Lay Out Inspector Relationship Specialty Start Date [place] [address] PCP - General Internal Medicine 06/13/23
== END 2024-12-25 11:21 | disposition home or self-care (01) ==
LOC: HO.HUSH 10:24
PROVIDERS: PCP Internal Medicine; Visit Provider Urology
DX: C61 Malignant neoplasm of prostate (principal); R97.20 Elevated prostate specific antigen [PSA]
CPT/HCPCS: 99213